=== PATIENT | female | born 2000 | race Hispanic/Latino ===

== ENCOUNTER 2022-08-17 11:25 | Emergency (ER) | payer OTHER, MEDICAID ==
[~2022-08-17] VITALS: Ht 157.5 cm; Wt 86.2 kg
[2022-08-17 11:49] VITALS: BP 122/76
[2022-08-17 12:16] LABS: APPEARANCE,URINE CLEAR (CLEAR); BILIRUBIN,URINE NEGATIVE (NEGATIVE); COLOR,URINE COLORLESS (YELLOW); GLUCOSE, URINE (UA) NEGATIVE (NEGATIVE); KETONES,URINE NEGATIVE (NEGATIVE); LEUKOCYTE ESTERASE ,URINE NEGATIVE Leu/uL (NEGATIVE); NITRATE,URINE NEGATIVE (NEGATIVE); OCCULT BLOOD,URINE NEGATIVE (NEGATIVE); PROTEIN,URINE NEGATIVE (NEGATIVE); UROBILINOGEN,URINE 0.2 mg/dL (0.2-1.0)
[2022-08-17 12:28] LABS: HCG,QUALITATIVE URINE NEGATIVE (NEGATIVE)
[2022-08-17] MEDS ORDERED: SULFAMETHOX-TMP DS 800/160 TAB PO SCH (13:00)
[2022-08-17] MEDS ORDERED: SULF1TAB42 PO (13:07)
== END 2022-08-17 13:12 | disposition home or self-care (01) ==
LOC: EDH 11:25
DX: N76.4 Abscess of vulva (principal)
CPT/HCPCS: 56405; 81003; 81025

== ENCOUNTER 2022-12-31 11:53 | Day surgery (SDC) | payer OTHER, MEDICAID ==
[2022-12-29 13:26] VITALS: BP 138/69
[2022-12-29 13:39] LABS: BASOPHILS % (AUTO) 0.4 % (0.0-5.0); EOSINOPHILS % (AUTO) 0.9 % (0.0-8.0); HEMATOCRIT 45.5 % (36-48); LYMPHOCYTES % (AUTO) 20.9 % (21.0-51.0); MEAN CORPUSCULAR HEMOGLOBIN 28.2 pg (27.0-33.0); MEAN CORPUSCULAR HGB CONC 31.9 g/dL (32.0-36.0); MEAN CORPUSCULAR VOLUME 88.5 fL (79-99); MONOCYTES % (AUTO) 4.9 % (3.0-13.0); NEUTROPHILS % (AUTO) 72.5 % (40.0-77.0); PLATELET COUNT (AUTO) 328 K/uL (130-400); RED BLOOD CELL COUNT(AUTO) 5.14 MIL/uL (4.00-5.50); RED CELL DISTRIBUTION WIDTH 12.2 % (11.0-15.5); WHITE BLOOD COUNT (AUTO) 10.2 K/uL (4.8-10.8)
[2022-12-29 14:10] LABS: CREATININE 0.7 mg/dL (0.5-1.5); POTASSIUM 4.5 mmol/L (3.5-5.1)
[2022-12-31] VITALS (19 sets, daily range): BP systolic 103–136; BP diastolic 57–84
[~2022-12-31] VITALS: Ht 157.5 cm; Wt 87.7 kg
[~2022-12-31 11:53] MED LIST: CEFAZOLIN SODIUM 1 GM VIAL IVPB PRN; LACTATED RINGERS 1000ML 1,000 ML IV SCH
[2022-12-31] MEDS ORDERED: ROCURONIUM 10MG/1ML SYR 10 MG/ML ML ONE (13:06)
[2022-12-31] MEDS ORDERED: MIDAZOLAM HCL 1 MG/ML 2ML VIAL ONE (13:06)
[2022-12-31] MEDS ORDERED: ONDANSETRON 4MG INJ ONE ×2 (13:06→15:24)
[2022-12-31] MEDS ORDERED: PROPOFOL 10 MG/ML 20ML VIAL IV ONE (13:06)
[2022-12-31] MEDS ORDERED: FENTANYL CITRATE PF 50 MCG/1 ML 2ML VIAL ONE ×2 (13:07→14:57)
[2022-12-31] MEDS ORDERED: MEPERIDINE-PF 25 MG/ML SYG ONE ×3 (14:38→15:37)
[2022-12-31] MEDS ORDERED: PHENYLEPHRINE HCL 10 MG/ML 1ML VIAL IV ONE (14:42)
[2022-12-31] MEDS ORDERED: EPHEDRINE SULFATE 50 MG/ML AMPULE ONE (14:42)
[2022-12-31] MEDS ORDERED: KETOROLAC 30MG VIAL (30MG/ML) ONE ×2 (14:56→15:23)
== END 2022-12-31 16:55 | disposition home or self-care (01) ==
LOC: DAH 11:53
PROVIDERS: ATTEND Orthopaedic Surgery
DX: T84.84XA Pain due to internal orthopedic prosthetic devices, implants and grafts, initial encounter (principal); Z20.822 Contact with and (suspected) exposure to COVID-19; E66.01 Morbid (severe) obesity due to excess calories; Z79.01 Long term (current) use of anticoagulants; Z79.899 Other long term (current) drug therapy; Z98.890 Other specified postprocedural states; Y83.8 Other surgical procedures as the cause of abnormal reaction of the patient, or of later complication, without mention of misadventure at the time of the procedure; Y92.89 Other specified places as the place of occurrence of the external cause; Z68.35 Body mass index [BMI] 35.0-35.9, adult
CPT/HCPCS: 80048; 84703; 84702; 85025; 87426; 36415; 71045; 20680; 73610; A6260; A4663; J7120; J3010 ×2; J0690; J3490; J2250; J2704; J2405 ×2; J1885; J2175 ×3; J2370; A6223; A5120; A4215; A4223; A4222; A4221